=== PATIENT | female | born 1935 | race Caucasian/White ===

== ENCOUNTER → 2017-04-29 | Outpatient (CLI) | payer MEDICARE ==
[2017-04-29 19:06] LABS: Basophils # (A) 0.1 k/uL (0-0.2); Basophils % (A) 1 %; Eosinophils # (A) 0.5 k/uL (0-0.7); Eosinophils % (A) 4 %; HDW 2.15; HGB 13.5 gm/dL (11.4-16.0); Luc % (Auto) 3; Lymphocytes # (A) 2.9 k/uL (1.0-4.8); Lymphocytes % (A) 23 %; MCH 30.4 pg (25.0-35.0); MCHC 32.2 g/dL (31.0-37.0); MCV 94.4 fL (80.0-100.0); Mean Platelet Volume 7.5; Monocytes # (A) 0.8 k/uL (0-1.0); Monocytes % (A) 7 %; Neutrophils # (A) 7.8 k/uL (1.3-7.7); Neutrophils % (A) 62 %; RBC 4.45 m/uL (3.80-5.40); RDW 12.9 % (11.5-15.5); WBC 12.5 k/uL (3.8-10.6); WBC (Perox) 12.35
[2017-04-29 19:07] LABS: ALT 37 U/L (9-52); AST 34 U/L (14-36); Alkaline Phosphatase 74 U/L (38-126); Anion Gap 8 mmol/L; Blood Urea Nitrogen 24 mg/dL (7-17); Calcium 10.6 mg/dL (8.4-10.2); Carbon Dioxide 31 mmol/L (22-30); Chloride 98 mmol/L (98-107); Cholesterol 135 mg/dL (<200); Glucose 84 mg/dL (74-99); HDL Cholesterol 62 mg/dL (40-60); Non-African American GFR(MDRD) >60 (>60 ml/min/1.73 sqM); Potassium 4.7 mmol/L (3.5-5.1); Sodium 137 mmol/L (137-145); Total Bilirubin 0.6 mg/dL (0.2-1.3); Total Protein 6.9 g/dL (6.3-8.2)
[2017-04-29 19:45] LABS: Hemoglobin A1C 6.3 % (4.2-6.1)
== END ==
LOC: MMGSC 13:52
PROVIDERS: ATTEND Family Medicine
DX: E11.9 Type 2 diabetes mellitus without complications (principal); E78.5 Hyperlipidemia, unspecified; I10 Essential (primary) hypertension
CPT/HCPCS: 36415; 80053; 80061; 83036; 84439; 84443; 85025

== ENCOUNTER 2017-06-01 16:24 | Inpatient (IN) | payer MEDICARE ==
--- NOTE | 2017-06-01 16:46 | ED ---
General Adult HPI - General Chief complaint: Extremity Injury, Lower Stated complaint: fall/hip pain Time Seen by Provider: 06/01/17 16:45 Source: patient Mode of arrival: wheelchair Limitations: no limitations - History of Present Illness Initial comments: Kaylee is an 82-year-old female who presents to the emergency department via private vehicle for evaluation of right hip pain after a fall. reports that they were at the gas station she was walking around a corner when she lost her footing and fell onto her right side. He heard her scream immediately and ran to his sister. He was able to assist her back into the wild animal caretaker to the emergency department. He reports that since the fall she has not been willing to stand or bear weight on that leg. He denies any previous injuries or surgeries to that leg. When laying flat the patient reports she is comfortable however she has pain with movement of her right hip. - Related Data Home Medications Medication Instructions Recorded Confirmed Aspirin EC [Ecotrin Low Dose] 81 mg PO DAILY 06/01/17 06/01/17 Calcium Carbonate [Calcium] 600 mg PO BID 06/01/17 06/01/17 Losartan/Hydrochlorothiazide 1 tab PO DAILY 06/01/17 06/01/17 [Losartan-Hctz 100-25 mg Tab] Memantine HCl [Namenda] 10 mg PO BID 06/01/17 06/01/17 Metoprolol Succinate [Toprol XL] 50 mg PO DAILY 06/01/17 06/01/17 [place]-3 Fatty Acids/Fish Oil [Fish 1 cap PO BID 06/01/17 06/01/17 Oil 1,000 mg Softgel] Rivastigmine Tartrate [Exelon] 4.5 mg PO DAILY 06/01/17 06/01/17 Simvastatin [Zocor] 40 mg PO HS 06/01/17 06/01/17 prednisoLONE ACETATE 1% OPHTH 1 drops LEFT EYE MOFR 06/01/17 06/01/17 [Pred Forte 1%] Allergies Allergy/AdvReac Type Severity Reaction Status Date / Time No Known Allergies Allergy Verified 06/01/17 17:22 Review of Systems ROS Statement: Those systems with pertinent positive or pertinent negative responses have been documented in the HPI. ROS Other: All systems not noted in ROS Statement are negative. 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 Absent: respiratory distress Cardiovascular Exam: Present: normal rhythm, bradycardia GI/Abdominal exam: Present: soft. Absent: distended Right Hip exam: Present: tenderness. Absent: full ROM Upper Leg exam: Present: tenderness. Absent: full ROM Knee exam: Absent: tenderness Lower Leg exam: Absent: tenderness Ankle exam: Present: full ROM. Absent: tenderness Foot/Toe exam: Present: full ROM. Absent: tenderness Neurovascular tendon exam: Absent: pulse deficit, abnormal cap refill, sensory deficit, extremity cold to touch, pallor Back exam: Present: normal inspection Neurological exam: Present: alert Psychiatric exam: Present: normal affect Skin exam: Present: warm, dry, intact Course Vital Signs 06/01/17 06/01/17 16:26 17:47 Temperature 97.6 F Pulse Rate 50 L 50 L Respiratory 18 20 Rate Blood Pressure 119/56 155/70 O2 Sat by Pulse 95 98 Oximetry - Reevaluation(s) Reevaluation #1: Urologist called with critical finding of intertrochanteric fracture with some compression as well as a concern for AAA. I updated the patient and her on these findings. Patient and report no known history of abdominal aortic aneurysm. 06/01/17 17:23 Medical Decision Making - Medical Decision Making She was seen and evaluated, history was obtained from the patient and her , patient is pleasantly demented to provide history and identify painful stimuli She with a mechanical fall earlier in the day, has been unable to ambulate since that time, has required assistance in transitioning from wheelchair to bed. Concern for right hip pain. I will order an x-ray to evaluate for possible fracture Lower extremity is neurovascularly intact X-ray with concern for fracture as well as possible AAA, I will pursue further evaluation of this with a CT angiography Labs ordered in anticipation of operative repair CT reveals a aortic aneurysm of 5.6 cm in maximum diameter, patient is currently symptomatically from this this is likely chronic require outpatient follow-up Patient care was discussed with Dr. Rosa of the orthopedic team who accepts the admission and requests the patient be made nothing by mouth at midnight for likely operative intervention tomorrow morning Admission orders were placed - Lab Data Result diagrams: 06/01/17 17:50 06/01/17 17:50 Lab Results 06/01/17 06/01/17 06/01/17 Range/Units 17:50 17:50 17:50 WBC 18.4 H (3.8-10.6) k/uL RBC 4.27 (3.80-5.40) m/uL Hgb 12.9 (11.4-16.0) gm/dL Hct 40.7 (34.0-46.0) % MCV 95.3 (80.0-100.0) fL MCH 30.2 (25.0-35.0) pg MCHC 31.7 (31.0-37.0) g/dL RDW 12.6 (11.5-15.5) % Plt Count 277 (150-450) k/uL Neutrophils % 77 % Lymphocytes % 12 % Monocytes % 7 % Eosinophils % 2 % Basophils % 1 % Neutrophils # 14.1 H (1.3-7.7) k/uL Lymphocytes # 2.1 (1.0-4.8) k/uL Monocytes # 1.2 H (0-1.0) k/uL Eosinophils # 0.4 (0-0.7) k/uL Basophils # 0.1 (0-0.2) k/uL PT (9.0-12.0) sec INR (<1.2) APTT (22.0-30.0) sec Sodium 135 L (137-145) mmol/L Potassium 5.5 H (3.5-5.1) mmol/L Chloride 101 (98-107) mmol/L Carbon Dioxide 25 (22-30) mmol/L Anion Gap 9 mmol/L BUN 38 H (7-17) mg/dL Creatinine 0.96 (0.52-1.04) mg/dL Est GFR (MDRD) Af Amer >60 (>60 ml/min/1.73 sqM) Est GFR (MDRD) Non-Af 56 (>60 ml/min/1.73 sqM) Glucose 111 H (74-99) mg/dL Calcium 9.9 (8.4-10.2) mg/dL Total Bilirubin 0.5 (0.2-1.3) mg/dL AST 36 (14-36) U/L ALT 28 (9-52) U/L Alkaline Phosphatase 57 (38-126) U/L Total Protein 6.8 (6.3-8.2) g/dL Albumin 3.7 (3.5-5.0) g/dL Blood Type A Positive Blood Type Recheck CABO Indicated Antibody Screen NEGATIVE Spec Expiration Date 06/04/2017 - 234906/01/17 Range/Units 18:50 WBC (3.8-10.6) k/uL RBC (3.80-5.40) m/uL Hgb (11.4-16.0) gm/dL Hct (34.0-46.0) % MCV (80.0-100.0) fL MCH (25.0-35.0) pg MCHC (31.0-37.0) g/dL RDW (11.5-15.5) % Plt Count (150-450) k/uL Neutrophils % % Lymphocytes % % Monocytes % % Eosinophils % % Basophils % % Neutrophils # (1.3-7.7) k/uL Lymphocytes # (1.0-4.8) k/uL Monocytes # (0-1.0) k/uL Eosinophils # (0-0.7) k/uL Basophils # (0-0.2) k/uL PT 11.3 (9.0-12.0) sec INR 1.1 (<1.2) APTT 20.6 L (22.0-30.0) sec Sodium (137-145) mmol/L Potassium (3.5-5.1) mmol/L Chloride (98-107) mmol/L Carbon Dioxide (22-30) mmol/L Anion Gap mmol/L BUN (7-17) mg/dL Creatinine (0.52-1.04) mg/dL Est GFR (MDRD) Af Amer (>60 ml/min/1.73 sqM) Est GFR (MDRD) Non-Af (>60 ml/min/1.73 sqM) Glucose (74-99) mg/dL Calcium (8.4-10.2) mg/dL Total Bilirubin (0.2-1.3) mg/dL AST (14-36) U/L ALT (9-52) U/L Alkaline Phosphatase (38-126) U/L Total Protein (6.3-8.2) g/dL Albumin (3.5-5.0) g/dL Blood Type Blood Type Recheck Antibody Screen Spec Expiration Date Disposition Clinical Impression: Fracture of hip Disposition: ADMITTED IP TO THIS HOSP Condition: Good Referrals: Yamilet Herr MD [Primary Care Provider] - 1-2 days Time of Disposition: 20:02 Decision Time: 20:02
--- NOTE | 2017-06-01 17:14 | XR ---
EXAMINATION TYPE: XR Hip RT and AP Pelvis DATE OF EXAM: 06/01/2017 COMPARISON: NONE HISTORY: , And pain TECHNIQUE: A single AP view of the pelvis is obtained. Two views of the right hip are obtained. There is an intertrochanteric fracture of the right hip with some impaction. No dislocation. Bone min eralization is reduced. Large rounded area of calcification present within the abdomen. Impression: Right hip fracture. Suspect abdominal aortic aneurysm.
[2017-06-01] MEDS ORDERED: RX INFO: IV CONTRAST WAS GIVEN 1 EACH MISC MISCELLANE PRN (17:21)
[2017-06-01 18:01] LABS: Basophils # (A) 0.1 k/uL (0-0.2); Basophils % (A) 1 %; CH 30.5; CHCM 32.2; Eosinophils # (A) 0.4 k/uL (0-0.7); Eosinophils % (A) 2 %; HCT 40.7 % (34.0-46.0); HDW 2.11; HGB 12.9 gm/dL (11.4-16.0); Luc # (Auto) 0.45; Luc % (Auto) 3; Lymphocytes # (A) 2.1 k/uL (1.0-4.8); Lymphocytes % (A) 12 %; MCH 30.2 pg (25.0-35.0); MCHC 31.7 g/dL (31.0-37.0); MCV 95.3 fL (80.0-100.0); Mean Platelet Volume 8.1; Monocytes # (A) 1.2 k/uL (0-1.0); Monocytes % (A) 7 %; Neutrophils # (A) 14.1 k/uL (1.3-7.7); Neutrophils % (A) 77 %; RBC 4.27 m/uL (3.80-5.40); RDW 12.6 % (11.5-15.5); WBC 18.4 k/uL (3.8-10.6); WBC (Perox) 18.21
[2017-06-01 18:12] LABS: ALT 28 U/L (9-52); AST 36 U/L (14-36); Alkaline Phosphatase 57 U/L (38-126); Anion Gap 9 mmol/L; Blood Urea Nitrogen 38 mg/dL (7-17); Calcium 9.9 mg/dL (8.4-10.2); Carbon Dioxide 25 mmol/L (22-30); Chloride 101 mmol/L (98-107); Glucose 111 mg/dL (74-99); Non-African American GFR(MDRD) 56 (>60 ml/min/1.73 sqM); Potassium 5.5 mmol/L (3.5-5.1); Sodium 135 mmol/L (137-145); Total Bilirubin 0.5 mg/dL (0.2-1.3); Total Protein 6.8 g/dL (6.3-8.2)
[2017-06-01 19:14] LABS: INR 1.1 (<1.2); Prothrombin Time 11.3 sec (9.0-12.0)
[2017-06-01 19:34] LABS: Partial Thromboplastin Time 20.6 sec (22.0-30.0)
--- NOTE | 2017-06-01 19:41 | CT ---
EXAMINATION TYPE: CT angio thoracic/abd aorta DATE OF EXAM: 06/01/2017 COMPARISON: Plain film same date HISTORY: Abnormal xray. CT DLP: 1228.40 mGycm. Automated Exposure Control for Dose Reduction was Utilized. CONTRAST: CT scan of the thorax, abdomen and pelvis is performed without and with IV Contrast, patient injected with 80 mL of Visipaque 320. FINDINGS: Three-dimensional reconstructions performed on an alternate workstation Emphysematous changes are present within the lungs. There is no pleural or pericardial effusion. Sandra cardial calcification, coronary artery calcifications are noted. There is a small hiatal hernia. Thoracic aorta is nonaneurysmal. The descending aorta shows a luminal plaque. The innominate artery, left and right common carotid, left and right subclavian arteries are patent. Left and right common c arotid arteries are patent. The superior mesenteric artery, celiac axis, left and right renal arteries are patent. Inferior mesen teric artery is not seen. There is a pararenal abdominal aortic aneurysm measuring 5.6 cm in size. Th e neck is less than 1 cm to a caliber of approximately 4 cm. There is some calcification present with in the lumen. The abdominal aorta measures approximately 3 cm at the level of the origin of the renal arteries. Common iliac arteries show extensive calcification, there may be a stenosis of the origin of the left common iliac artery greater than right. Internal and external iliac arteries are patent. Common femoral arteries are patent as are proximal superficial and deep femoral arteries. Extensive diverticular change noted in the sigmoid colon. Sizable left renal cyst is present at the u pper pole. Smaller cortical cysts are present bilaterally. 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 Comminuted intertrochanteric fracture is noted in the right hip. There is no dislocation. Degenerativ e disc changes in the visualized spine. IMPRESSION: Pararenal abdominal aortic aneurysm, peripheral vascular occlusive disease as described. Intertrochanteric proximal right femoral fracture. Emphysema. Coronary artery disease. Diverticulosis . Additional findings above.
[2017-06-01] MEDS ORDERED: MORPHINE SULFATE 2 MG/ML SYRINGE IV PRN (19:57)
[2017-06-01] MEDS ORDERED: NALOXONE 0.4 MG/ML 1 ML VIAL IV PRN (19:57)
[2017-06-01] MEDS ORDERED: ONDANSETRON 4 MG/2 ML VIAL IVP PRN (19:57)
[2017-06-01] MEDS ORDERED: METOPROLOL TARTRATE 50 MG TAB PO STA (20:32)
[2017-06-01] MEDS: SODIUM CHLORIDE 0.9% 1,000 ML IV SCH (22:00)
[2017-06-01] MEDS: MEMANTINE 10 MG TAB PO SCH (22:55)
[2017-06-01 23:16] VITALS: BMI 24.8
[2017-06-02 07:26] LABS: Anion Gap 8 mmol/L; Blood Urea Nitrogen 33 mg/dL (7-17); Calcium 9.2 mg/dL (8.4-10.2); Carbon Dioxide 24 mmol/L (22-30); Chloride 103 mmol/L (98-107); Glucose 123 mg/dL (74-99); Magnesium 1.7 mg/dL (1.6-2.3); Non-African American GFR(MDRD) >60 (>60 ml/min/1.73 sqM); Potassium 4.4 mmol/L (3.5-5.1); Sodium 135 mmol/L (137-145)
[2017-06-02 08:08] LABS: Basophils # (A) 0.1 k/uL (0-0.2); Basophils % (A) 0 %; CH 30.4; CHCM 31.7; Eosinophils # (A) 0.3 k/uL (0-0.7); Eosinophils % (A) 2 %; HCT 38.6 % (34.0-46.0); HDW 2.04; Luc # (Auto) 0.51; Luc % (Auto) 4; Lymphocytes # (A) 2.2 k/uL (1.0-4.8); Lymphocytes % (A) 17 %; MCH 29.9 pg (25.0-35.0); MCHC 31.1 g/dL (31.0-37.0); MCV 96.3 fL (80.0-100.0); Mean Platelet Volume 6.6; Monocytes # (A) 0.9 k/uL (0-1.0); Monocytes % (A) 8 %; Neutrophils # (A) 8.4 k/uL (1.3-7.7); Neutrophils % (A) 68 %; RBC 4.01 m/uL (3.80-5.40); RDW 12.9 % (11.5-15.5); WBC 12.3 k/uL (3.8-10.6); WBC (Perox) 12.11
[2017-06-02] MEDS: METOPROLOL SUCCINATE (ER) 50 MG TAB.ER.24H PO SCH (08:48)
[2017-06-02] MEDS: DONEPEZIL 5 MG TAB PO SCH (08:48)
[2017-06-02] MEDS: MEMANTINE 10 MG TAB PO SCH ×2 (08:48→20:15)
[2017-06-02] MEDS: PANTOPRAZOLE 40 MG/10 ML VIAL IV SCH (09:10)
[2017-06-02] MEDS: SODIUM CHLORIDE 0.9% 1,000 ML IV SCH (09:13)
--- NOTE | 2017-06-02 09:21 | P.HPOR ---
<Janki Munroe L - Last Filed: 06/02/17 09:15> History of Present Illness H&P Date: 06/02/17 This is an 82-year-old female who is admitted for right hip fracture. Patient states she fell around 2:30 in the afternoon yesterday developed pain to the right hip. Patient was evaluated in the emergency room and admitted for orthopedic evaluation. Patient denies any pain to the left lower extremity, bilateral upper extremities, back or neck. Review of Systems See HPI. Past Medical History Past Medical History: Hypertension Additional Past Medical History / Comment(s): alzhemiers History of Any Multi-Drug Resistant Organisms: None Reported Past Surgical History: No Surgical Hx Reported Past Anesthesia/Blood Transfusion Reactions: No Reported Reaction Past Psychological History: No Psychological Hx Reported Smoking Status: Never smoker Past Alcohol Use History: Occasional Past Drug Use History: None Reported Medications and Allergies Home Medications Medication Instructions Recorded Confirmed Type Aspirin EC [Ecotrin Low Dose] 81 mg PO DAILY 06/01/17 06/01/17 History Calcium Carbonate [Calcium] 600 mg PO BID 06/01/17 06/01/17 History Losartan/Hydrochlorothiazide 1 tab PO DAILY 06/01/17 06/01/17 History [Losartan-Hctz 100-25 mg Tab] Memantine HCl [Namenda] 10 mg PO BID 06/01/17 06/01/17 History Metoprolol Succinate [Toprol XL] 50 mg PO DAILY 06/01/17 06/01/17 History [place]-3 Fatty Acids/Fish Oil [Fish 1 cap PO BID 06/01/17 06/01/17 History Oil 1,000 mg Softgel] Rivastigmine Tartrate [Exelon] 4.5 mg PO DAILY 06/01/17 06/01/17 History Simvastatin [Zocor] 40 mg PO HS 06/01/17 06/01/17 History prednisoLONE ACETATE 1% OPHTH 1 drops LEFT EYE MOFR 06/01/17 06/01/17 History [Pred Forte 1%] Allergies Allergy/AdvReac Type Severity Reaction Status Date / Time No Known Allergies Allergy Verified 06/01/17 17:22 Physical Examination On exam patient is in no acute distress and is answering questions appropriately. There is tenderness over the right hip. Calf is soft and nontender. Dorsalis pedis pulses 2+. There is no tenderness of the left lower extremity or bilateral upper extremities. Neurovascular status intact to bilateral upper and lower extremities. Results X-rays of the right hip were reviewed showing intertrochanteric fracture of the right femur. - Labs Labs: Abnormal Lab Results - Last 24 Hours (Table) 06/01/17 06/01/17 06/01/17 Range/Units 17:50 17:50 18:50 WBC 18.4 H (3.8-10.6) k/uL Neutrophils # 14.1 H (1.3-7.7) k/uL Monocytes # 1.2 H (0-1.0) k/uL APTT 20.6 L (22.0-30.0) sec Sodium 135 L (137-145) mmol/L Potassium 5.5 H (3.5-5.1) mmol/L BUN 38 H (7-17) mg/dL Glucose 111 H (74-99) mg/dL 06/02/17 06/02/17 Range/Units 06:40 06:40 WBC 12.3 H (3.8-10.6) k/uL Neutrophils # 8.4 H (1.3-7.7) k/uL Monocytes # (0-1.0) k/uL APTT (22.0-30.0) sec Sodium 135 L (137-145) mmol/L Potassium (3.5-5.1) mmol/L BUN 33 H (7-17) mg/dL Glucose 123 H (74-99) mg/dL H & H 06/01/17 06/02/17 Range/Units 17:50 06:40 Hgb 12.9 12.0 (11.4-16.0) gm/dL Hct 40.7 38.6 (34.0-46.0) % Coagulation 06/01/17 Range/Units 18:50 INR 1.1 (<1.2) Result Diagrams: 06/02/17 06:40 06/02/17 06:40 Assessment and Plan (1) Intertrochanteric fracture of right hip Current Visit: Yes Status: Acute Code(s): S72.141A - DISPLACED INTERTROCHANTERIC FRACTURE OF RIGHT FEMUR, INIT SNOMED Code(s): 815435212 Plan: #1. Patient is to be NPO. #2. Medical clearance is pending. #3. Patient is scheduled for a closed reduction intramedullary hip screw of the right hip at 11:[address] Georgi Rosa if cleared medically. <Kar Mcdonnell - Last Filed: 06/02/17 11:36> Physical Examination Osteopathic Statement: *. No significant issues noted on an osteopathic structural exam other than those noted in the History and Physical/Consult. Results - Labs Labs: Abnormal Lab Results - Last 24 Hours (Table) 06/01/17 06/01/17 06/01/17 Range/Units 17:50 17:50 18:50 WBC 18.4 H (3.8-10.6) k/uL Neutrophils # 14.1 H (1.3-7.7) k/uL Monocytes # 1.2 H (0-1.0) k/uL APTT 20.6 L (22.0-30.0) sec Sodium 135 L (137-145) mmol/L Potassium 5.5 H (3.5-5.1) mmol/L BUN 38 H (7-17) mg/dL Glucose 111 H (74-99) mg/dL 06/02/17 06/02/17 Range/Units 06:40 06:40 WBC 12.3 H (3.8-10.6) k/uL Neutrophils # 8.4 H (1.3-7.7) k/uL Monocytes # (0-1.0) k/uL APTT (22.0-30.0) sec Sodium 135 L (137-145) mmol/L Potassium (3.5-5.1) mmol/L BUN 33 H (7-17) mg/dL Glucose 123 H (74-99) mg/dL H & H 06/01/17 06/02/17 Range/Units 17:50 06:40 Hgb 12.9 12.0 (11.4-16.0) gm/dL Hct 40.7 38.6 (34.0-46.0) % Coagulation 06/01/17 Range/Units 18:50 INR 1.1 (<1.2) Result Diagrams: 06/02/17 06:40 06/02/17 06:40 Assessment and Plan Assessment: I saw the patient myself evaluated the x-rays and discuss case with Dr. Rosa as well as with Janki ramesh to the physician preschool assistant teacher. I did also discuss case with the medicine doctor who cleared the patient as well. Patient has an intertrochanteric right hip fracture and I agree with the assessment and plan for intramedullary hip screw fixation with surgery. I discussed the risks , occasions alternatives and benefits with the family at bedside answered their questions best my ability and the like to proceed with surgical intervention as soon as possible
--- NOTE | 2017-06-02 10:43 | P.CONS ---
History of Present Illness - Reason for Consult Consult date: 06/02/17 medical clearance - Chief Complaint intertrochanteric fracture - History of Present Illness this 82-year-old female was admitted after a fall. describes it patient just tripped on a unevenness in the cement and fell down. Patient did not hit her head and the lose consciousness denies any chest pain or palpitations prior to falling down.denies any recent illness denies any chest pains recently. Review of Systems Constitutional: Denies chills, Denies fever Eyes: denies blurred vision, denies pain Ears, nose, mouth and throat: Denies headache, Denies sore throat Cardiovascular: Denies chest pain, Denies shortness of breath Respiratory: Denies cough Gastrointestinal: Denies abdominal pain, Denies diarrhea, Denies nausea, Denies vomiting Genitourinary: Denies dysuria, Denies hematuria Musculoskeletal: Denies myalgias Integumentary: Denies pruritus, Denies rash Neurological: Denies numbness, Denies weakness Psychiatric: Denies anxiety, Denies depression Endocrine: Denies fatigue, Denies weight change Past Medical History Past Medical History: COPD, Dementia, Hyperlipidemia, Hypertension Additional Past Medical History / Comment(s): alzhemiers History of Any Multi-Drug Resistant Organisms: None Reported Past Surgical History: No Surgical Hx Reported, Cholecystectomy Additional Past Surgical History / Comment(s): eye surgery Past Anesthesia/Blood Transfusion Reactions: No Reported Reaction Past Psychological History: No Psychological Hx Reported Smoking Status: Former smoker Past Alcohol Use History: Occasional Past Drug Use History: None Reported Additional History: family history no of coronary artery disease or stroke Medications and Allergies Home Medications Medication Instructions Recorded Confirmed Type Aspirin EC [Ecotrin Low Dose] 81 mg PO DAILY 06/01/17 06/01/17 History Calcium Carbonate [Calcium] 600 mg PO BID 06/01/17 06/01/17 History Losartan/Hydrochlorothiazide 1 tab PO DAILY 06/01/17 06/01/17 History [Losartan-Hctz 100-25 mg Tab] Memantine HCl [Namenda] 10 mg PO BID 06/01/17 06/01/17 History Metoprolol Succinate [Toprol XL] 50 mg PO DAILY 06/01/17 06/01/17 History [place]-3 Fatty Acids/Fish Oil [Fish 1 cap PO BID 06/01/17 06/01/17 History Oil 1,000 mg Softgel] Rivastigmine Tartrate [Exelon] 4.5 mg PO DAILY 06/01/17 06/01/17 History Simvastatin [Zocor] 40 mg PO HS 06/01/17 06/01/17 History prednisoLONE ACETATE 1% OPHTH 1 drops LEFT EYE MOFR 06/01/17 06/01/17 History [Pred Forte 1%] Allergies Allergy/AdvReac Type Severity Reaction Status Date / Time No Known Allergies Allergy Verified 06/01/17 17:22 Physical Exam Vitals: Vital Signs Temp Pulse Pulse Resp BP BP Pulse Ox 06/02/17 01:35 97.7 F 57 L 16 161/68 95 06/01/17 23:21 16 06/01/17 22:15 98.7 F 72 16 166/72 94 L 06/01/17 20:13 51 L 18 193/79 92 L 06/01/17 17:47 50 L 20 155/70 98 06/01/17 16:26 97.6 F 50 L 18 119/56 95 Intake and Output 06/01/17 06/02/17 06/02/17 22:59 06:59 14:59 Intake Total 475 Output Total 810 Balance -335 Intake: Intake, IV Titration 375 Amount Sodium Chloride 0.9% 1, 375 000 ml @ 75 mls/hr IV . [id number] [facility] Rx#:[id number] Oral 100 Output: Urine 810 Uretheral (Boss) 500 Other: Voiding Method Indwelling Catheter Weight 61.689 kg - Constitutional General appearance: no acute distress - EENT Eyes: EOMI, PERRLA - Neck Neck: no lymphadenopathy - Respiratory Respiratory: bilateral: CTA, negative: rhonchi, wheezing - Cardiovascular Rhythm: regular Heart sounds: normal: S1, S2 - Gastrointestinal General gastrointestinal: no organomegaly, soft, no tenderness - Psychiatric Psychiatric: A&O x's 3, appropriate affect Results CBC & Chem 7: 06/02/17 06:40 06/02/17 06:40 Labs: Abnormal Lab Results - Last 24 Hours (Table) 06/01/17 06/01/17 06/01/17 Range/Units 17:50 17:50 18:50 WBC 18.4 H (3.8-10.6) k/uL Neutrophils # 14.1 H (1.3-7.7) k/uL Monocytes # 1.2 H (0-1.0) k/uL APTT 20.6 L (22.0-30.0) sec Sodium 135 L (137-145) mmol/L Potassium 5.5 H (3.5-5.1) mmol/L BUN 38 H (7-17) mg/dL Glucose 111 H (74-99) mg/dL 06/02/17 06/02/17 Range/Units 06:40 06:40 WBC 12.3 H (3.8-10.6) k/uL Neutrophils # 8.4 H (1.3-7.7) k/uL Monocytes # (0-1.0) k/uL APTT (22.0-30.0) sec Sodium 135 L (137-145) mmol/L Potassium (3.5-5.1) mmol/L BUN 33 H (7-17) mg/dL Glucose 123 H (74-99) mg/dL Assessment and Plan (1) Intertrochanteric fracture of right hip Narrative/Plan: I did evaluate patient EKG shows normal sinus rhythm CT from yesterday did show emphysematous changes. I did discuss with the family and patient is at moderate risk for surgery which they are accepting. I doRecommended patient if she is going under general anesthesia and placed on BiPAP postsurgically postextubation. Im being told by the orthopedic surgeon this patient would be most likely spinal. Which we will decreased her risk for surgery. Current Visit: Yes Status: Acute Code(s): S72.141A - DISPLACED INTERTROCHANTERIC FRACTURE OF RIGHT FEMUR, INIT SNOMED Code(s): 990999802 (2) Hypertension Narrative/Plan: currently controlled continue Toprol-XL Current Visit: Yes Status: Acute Code(s): I10 - ESSENTIAL (PRIMARY) HYPERTENSION SNOMED Code(s): 51970649 (3) Dementia Narrative/Plan: on Aricept Current Visit: Yes Status: Acute Code(s): F03.90 - UNSPECIFIED DEMENTIA WITHOUT BEHAVIORAL DISTURBANCE SNOMED Code(s): 24448835 (4) Emphysema lung Narrative/Plan: currently stable we'll order DuoNeb when necessary Would recommend placing on BiPAP post surgery. Current Visit: Yes Status: Acute Code(s): J43.9 - EMPHYSEMA, UNSPECIFIED SNOMED Code(s): 89955979 (5) Hyperlipidemia Narrative/Plan: diet controlled Current Visit: Yes Status: Acute Code(s): E78.5 - HYPERLIPIDEMIA, UNSPECIFIED SNOMED Code(s): 14334971
[2017-06-02] MEDS ORDERED: IV FLUID CONTINUATION 1,000 ML IV ONE (10:56)
[2017-06-02] MEDS ORDERED: ONDANSETRON 4 MG/2 ML VIAL IVP ONE (11:10)
[2017-06-02] MEDS ORDERED: KETAMINE 10 MG/ML 20 ML VIAL ONE (11:29)
[2017-06-02] MEDS ORDERED: MIDAZOLAM 2 MG/2 ML VIAL ONE (11:29)
[2017-06-02] MEDS ORDERED: PROPOFOL 10 MG/ML 20 ML VIAL IV ONE (11:29)
[2017-06-02] MEDS ORDERED: SODIUM CHLORIDE 0.9% 50 ML with ceFAZolin 2,000 MG IV ONE ×2 (11:42)
[2017-06-02] MEDS ORDERED: ceFAZolin 1,000 MG in SODIUM CHLORIDE 0.9% 1,000 ML IRRIGATION ONE (12:13)
[2017-06-02] MEDS ORDERED: MAGNESIUM HYDROXIDE 2,400 MG/10 ML CUP PO PRN (13:00)
[2017-06-02] MEDS ORDERED: NALOXONE 0.4 MG/ML 1 ML VIAL IV PRN (13:00)
[2017-06-02] MEDS ORDERED: HYDROmorphone 0.5 MG/0.5 ML SYRINGE IVP PRN (13:00)
--- NOTE | 2017-06-02 13:08 | P.OP ---
Date of Procedure: 06/02/17 Preoperative Diagnosis: Right hip intertrochanteric femur fracture, displaced, acute status post fall Postoperative Diagnosis: Same Anesthesia: spinal Pathology: other (Proximal femur bone reamings to pathology) Condition: stable Disposition: PACU Description of Procedure: Preoperative diagnosis: Intertrochanteric femoral hip fracture, acute comminuted status post fall Postoperative diagnosis: Same Procedure: intertrochanteric hip screw placement Use of fluoroscopic guidance Closed reduction Surgeon: Dr. Sathya Kessler.: Isrrael Murrieta who is present that the entire the case persistence during positioning dissection exposure placement of hardware and closure Anesthesia: Spinal per Dr. David Estimated blood loss: Approximately 100 mL Components implanted: [employer] InterTAN IM hip screw 125 by 11 mm with 90 m lag screw Disposition: To recovery room in good stable condition Operative indications The patient sustained a injury and suffered a hip fracture at the inter- trochanteric area of her femur which was displaced and angulated. She had an acute injury and a new fracture. She is found have the intertrochanteric fracture which was comminuted and angulated. We were involved in the case in regard to his hip fracture. She was completely in able to move in her bed or move her hip due to her injury. After evaluation it was determined that they would be a candidate for hip internal fixation with intramedullary hip screw via surgical intervention. This would give them the best chance of mobilization and ambulation. We discussed the range of treatment options from conservative to surgical. They elected proceed with surgical intervention. We answered their questions to the best of our ability healing which they can understand. They signed an informed consent. Operative summary After obtaining informed consent evaluation by anesthesia, preoperative evaluation and clearance for medical service, the patient was identified and prepped Boss area and the surgical site was marked. There brought to the operating room where the given appropriate anesthesia by the anesthesia department in standard fashion without any complications. Once the anesthesia was established we were able to position the patient. The patient was placed on a fracture table with a well-padded perineal post. The operative side was placed in a foot ho stirrup which was well-padded well molded and placed in gentle in-line traction. The nonoperative leg was placed in a padded stirrup. C-arm was brought in and we performed a closed reduction technique at the hip. We are able to get good alignment good position of the intertrochanteric fracture with gentle reduction techniques and traction utilizing the fracture table. Once patient was well positioned lower extremity was prepped and draped in normal standard sterile fashion. An appropriate keystone protocol and timeout was completed and were able to proceed with surgery. He started point just proximal to the greater trochanter was established and a median incision approximately 2 inches in length approximately to the greater trochanter. I dissected down through the fascia and I was able to expose the tip of the greater trochanter. A sharp starting hole was established at the tip of the greater trochanter near the junction of the anterior and middle third. Positioning was confirmed with C-arm guidance. I was able to start the awl into the bone and then use a guidepin at the starting point establish down to the level of the lesser trochanter at the intramedullary space. I then used a starting reamer for the greater trochanter placed over the guidepin and reamed down appropriately under C-arm guidance. I was unable to place a guidepin into the intramedullary aspect of the femur and then reamed appropriately to the appropriate length. The positioning was confirmed on C-arm guidance. With the femur appropriately reamed I then chose the appropriate size intramedullary brendan which was connected to the appropriate jig. The jig was checked for alignment. The area was copiously irrigated and suctioned dry and we're able place the brendan at intramedullary space through the starting hole appropriately. It was seated down for appropriate position to align the leg pain into the femoral neck and head. The second femoral neck and head screw was also placed and was able get good compression across the fracture site. A second incision was established at the site for the placement of the lag screw area and the guide was established at the lateral aspect of the femur and a guidepin was drilled into the femoral neck and head and near center center position. With this appropriate alignment and position where a reamer over the guidepin making sure not to penetrate the articular surface. The position was confirmed on C-arm guidance in AP and lateral positions. With this established we were able to place the appropriate size lag screw after measuring. Lag screw was placed into the femoral neck and head good alignment good position with excellent bony purchase. It was appropriately aligned and we placed a locking screw through the brendan appropriately and checked that the position was established. With the area in good position able place a distal locking screw. We utilized the triple guide sleeve a separate incision was made at the skin. The guide sleeve was placed in the lateral aspect of the femur and the distal locking screw hole was established through the femur and distal locking hole of the intramedullary brendan. It was measured appropriately and a distal locking screw was placed in good alignment and good position with excellent bony purchase. The position was checked to make sure it was through the appropriate hole in the intramedullary brendan. With this established we're able to remove the jig completely from the brendan and final images were taken which showed excellent alignment and position of the hardware and the fracture. With the brendan in place and the fracture stable, although the incision sites were copiously irrigated and suctioned dry. Good hemostasis was maintained. Deep fascial layers were closed with #1 Vicryl. Subcu tissue was closed with 2-0 Vicryl. Subcuticular tissues closed with 3-0 Vicryl. Was are cleaned and dried with dressed with Mastisol and Steri-Strips Telfa for a force and tape. Drapes were broken down, the hip was held in stable position with the post being removed safely once the positioning was stabilized. The patient was then transferred back to their hospital bed being careful to maintain the hip and C- spine alignment and airway. Once stable to patient was transferred back to the postanesthesia care unit to be readmitted for pain control and DVT prophylaxis medical management and monitoring and mobilization we will continue follow patient closely throughout their postoperative course.
--- NOTE | 2017-06-02 13:46 | FL ---
EXAMINATION TYPE: FL guidance operating room, XR Hip Complete RT DATE OF EXAM: 06/02/2017 CLINICAL HISTORY: Right hip pain TECHNIQUE: Fluoroscopy. COMPARISON: None. FINDINGS/IMPRESSION: Fluoroscopic guidance was provided during procedure performed by Dr. Rosa. A total of 1 minute and 55 seconds of fluoroscopic time was utilized during the procedure and 2 spot images was acquired.
[2017-06-02 14:51] LABS: Basophils # (A) 0.1 k/uL (0-0.2); Basophils % (A) 0 %; CH 31.7; CHCM 31.8; Eosinophils # (A) 0.4 k/uL (0-0.7); Eosinophils % (A) 2 %; HCT 38.3 % (34.0-46.0); HDW 2.07; HGB 11.7 gm/dL (11.4-16.0); Luc # (Auto) 0.44; Luc % (Auto) 3; Lymphocytes # (A) 2.3 k/uL (1.0-4.8); Lymphocytes % (A) 16 %; MCH 30.7 pg (25.0-35.0); MCHC 30.6 g/dL (31.0-37.0); MCV 100.2 fL (80.0-100.0); Macrocytosis Slight; Mean Platelet Volume 7.1; Monocytes # (A) 1.1 k/uL (0-1.0); Monocytes % (A) 7 %; Neutrophils # (A) 10.4 k/uL (1.3-7.7); Neutrophils % (A) 71 %; RBC 3.82 m/uL (3.80-5.40); WBC 14.6 k/uL (3.8-10.6); WBC (Perox) 15.04
[2017-06-02] MEDS: ceFAZolin 2 GM in SODIUM CHLORIDE 0.9% 100 ML IVPB SCH (17:18)
[2017-06-02] MEDS: ATORVASTATIN 20 MG TAB PO SCH (20:21)
[2017-06-02] MEDS: SENNOSIDES-DOCUSATE SODIUM 1 EACH TAB PO SCH (20:21)
[2017-06-02] MEDS: CALCIUM CARBONATE 500 MG CHEWABLE PO SCH (20:21)
[2017-06-02] MEDS ORDERED: NON-FORMULARY DRUG (Omega-3 Fatty Acids/Fish Oil [Fish Oil 1,000 Mg Softgel] 1 CAP) PO SCH (21:00)
[2017-06-03] MEDS: ceFAZolin 2 GM in SODIUM CHLORIDE 0.9% 100 ML IVPB SCH (00:15)
[2017-06-03] MEDS: SODIUM CHLORIDE 0.9% 1,000 ML IV SCH ×3 (02:43→23:26)
[2017-06-03] MEDS: ASPIRIN 81 MG PO SCH (09:05)
[2017-06-03] MEDS: CALCIUM CARBONATE 500 MG CHEWABLE PO SCH ×2 (09:05→21:08)
[2017-06-03] MEDS: DONEPEZIL 5 MG TAB PO SCH (09:05)
[2017-06-03] MEDS: ENOXAPARIN 40 MG/0.4 ML SYRINGE SQ SCH (09:05)
[2017-06-03] MEDS: LOSARTAN-HCTZ 50-12.5 MG 1 EACH TAB PO SCH (09:06)
[2017-06-03] MEDS: PANTOPRAZOLE 40 MG/10 ML VIAL IV SCH (09:06)
[2017-06-03] MEDS: METOPROLOL SUCCINATE (ER) 50 MG TAB.ER.24H PO SCH (09:06)
[2017-06-03] MEDS: MEMANTINE 10 MG TAB PO SCH ×2 (09:06→21:08)
--- NOTE | 2017-06-03 09:32 | P.PN ---
Progress Note - Text Progress Note Date: 06/03/17 Postoperative day #1 Patient is seen and examined today at bedside. The patient has some pain around the surgical site as expected. Pain is being controlled with medication. She has been able to sit up and is more comfortable around her hip today since her surgery. She denies any nausea or vomiting. Her Boss still intact Physical Exam Afebrile with stable vital signs Abdomen is soft nontender. Chest has good excursion deep and space expiration The incision site is clean dry and intact at her right thigh. No erythema there is no purulence. Her thigh and calf are soft and nontender. There is no active drainage. Extremities have not had neurologic change from prior to surgery. She has sustained dorsal flexion plantar flexion and extensor hallucis longus Calves and thighs were soft nontender without evidence of DVT. Assessment/Plan Postoperative day #1 status post intramedullary brendan fixation with IM hip screw for her intertrochanteric right hip fracture Patient is progressing as expected from the surgery. She should remain toe- touch weightbearing on the right lower extremity as the fracture heals. We will continue to increase the patient's mobilization with therapy. We will continue pain control with oral or IV medications. She will likely need placement with jail post hospitalization when she is stabilized with medicine service. She could potentially be discharged to jail tomorrow. We'll continue to follow patient closely.
--- NOTE | 2017-06-03 15:11 | P.PN ---
Subjective Progress Note Date: 06/03/17 Principal diagnosis: Intertrochanteric fracture 82 year old female that was admitted after a fall found to have ventricular trochanteric fracture. No muscle consciousness or chest pains or palpitations. Patient had surgical repair performed yesterday. Today patient will complain of pain she did have a bowel movement today appetite is good no nausea no vomiting. No fever no chills. Objective - Vital Signs Vital signs: Vital Signs Temp 97.1 F L 06/03/17 08:56 Pulse 84 06/03/17 08:56 Resp 18 06/03/17 08:56 BP 160/72 06/03/17 08:56 Pulse Ox 92 L 06/03/17 08:56 Intake & Output 06/02/17 06/03/17 06/03/17 18:59 06:59 18:59 Intake Total 1101 225 500 Output Total 925 800 300 Balance 176 -575 200 Weight 61.689 kg Intake: IV 1101 225 200 Sodium Chloride 0.9% 1, 300 225 200 000 ml @ 75 mls/hr IV . [id number] [facility] Rx#:[id number] Oral 300 Output: Urine 875 800 300 Uretheral (Boss) 400 300 Estimated Blood Loss 50 Other: Voiding Method Indwelling Catheter Indwelling Catheter Indwelling Catheter - Exam gen:alert and oriented lungs:clear to auscultation heart:s1s2 abdomen:soft and depressible,non tender ext:no edema - Labs CBC & Chem 7: 06/02/17 14:17 06/02/17 06:40 Assessment and Plan (1) Intertrochanteric fracture of right hip Narrative/Plan: Status post surgery yesterday performed by orthopedic surgery Clinically doing well pain controlled Current Visit: Yes Status: Acute Code(s): S72.141A - DISPLACED INTERTROCHANTERIC FRACTURE OF RIGHT FEMUR, INIT SNOMED Code(s): 477695965 (2) Hypertension Narrative/Plan: currently controlled continue Toprol-XL Current Visit: Yes Status: Acute Code(s): I10 - ESSENTIAL (PRIMARY) HYPERTENSION SNOMED Code(s): 41601271 (3) Dementia Narrative/Plan: on Aricept and Namenda Current Visit: Yes Status: Acute Code(s): F03.90 - UNSPECIFIED DEMENTIA WITHOUT BEHAVIORAL DISTURBANCE SNOMED Code(s): 64352414 (4) Emphysema lung Narrative/Plan: currently stable we'll order DuoNeb when necessary Patient seems to be stable at this time the compensatory shortness of breath no wheezing on exam Current Visit: Yes Status: Acute Code(s): J43.9 - EMPHYSEMA, UNSPECIFIED SNOMED Code(s): 10942842 (5) Hyperlipidemia Narrative/Plan: diet controlled Current Visit: Yes Status: Acute Code(s): E78.5 - HYPERLIPIDEMIA, UNSPECIFIED SNOMED Code(s): 84257536 Plan: Patient is doing well clinically. I did discuss with the patient and regarding discharge planning and the recommendation from physical therapy for the patient to rehab. [facility] willing to go to rehab and they have picked [facility]. product line manager will start making arrangements.
[2017-06-03] MEDS: SENNOSIDES-DOCUSATE SODIUM 1 EACH TAB PO SCH (21:08)
[2017-06-03] MEDS: ATORVASTATIN 20 MG TAB PO SCH (21:08)
[2017-06-04] MEDS: HYDROcodone/APAP 5-325MG 1 EACH TAB PO PRN ×3 (02:23→18:17)
[2017-06-04] MEDS ORDERED: PANTOPRAZOLE 40 MG TABLET PO SCH (07:30)
[2017-06-04 07:50] LABS: Basophils # (A) 0.1 k/uL (0-0.2); Basophils % (A) 1 %; CH 30.4; CHCM 31.9; Eosinophils # (A) 0.6 k/uL (0-0.7); Eosinophils % (A) 5 %; HCT 31.9 % (34.0-46.0); HDW 2.12; HGB 10.2 gm/dL (11.4-16.0); Luc # (Auto) 0.35; Luc % (Auto) 3; Lymphocytes # (A) 2.2 k/uL (1.0-4.8); Lymphocytes % (A) 18 %; MCH 30.7 pg (25.0-35.0); MCV 95.7 fL (80.0-100.0); Mean Platelet Volume 6.4; Monocytes # (A) 0.9 k/uL (0-1.0); Monocytes % (A) 7 %; Neutrophils # (A) 7.9 k/uL (1.3-7.7); Neutrophils % (A) 66 %; RBC 3.33 m/uL (3.80-5.40); RDW 12.9 % (11.5-15.5)
[2017-06-04] MEDS: ENOXAPARIN 40 MG/0.4 ML SYRINGE SQ SCH (08:39)
[2017-06-04] MEDS: CALCIUM CARBONATE 500 MG CHEWABLE PO SCH (08:39)
[2017-06-04] MEDS: DONEPEZIL 5 MG TAB PO SCH (08:40)
[2017-06-04] MEDS: ASPIRIN 81 MG PO SCH (08:41)
[2017-06-04] MEDS ORDERED: prednisoLONE ACETATE 1% OPHTH DROPS 5 ML BTL LEFT EYE SCH (09:00)
--- NOTE | 2017-06-04 09:04 | P.PN ---
Subjective Progress Note Date: 06/04/17 This is an 82-year-old female who is status post closed reduction intramedullary hip screw placement due to right hip fracture. This is postoperative day #2. Patient states her pain is under control and she has no new complaints today. Objective - Vital Signs Vital signs: Vital Signs Temp 97.7 F 06/04/17 01:50 Pulse 79 06/04/17 01:50 Resp 16 06/04/17 01:50 BP 126/60 06/04/17 01:50 Pulse Ox 92 L 06/04/17 01:50 Intake & Output 06/03/17 06/04/17 06/04/17 18:59 06:59 18:59 Intake Total 620 200 180 Output Total 300 700 Balance 320 -500 180 Weight 61.689 kg Intake: IV 200 Sodium Chloride 0.9% 1, 200 000 ml @ 75 mls/hr IV . [id number] [facility] Rx#:[id number] Oral 420 200 180 Output: Urine 300 700 Uretheral (Boss) 300 Other: Voiding Method Indwelling Catheter Bedside Commode Bedside Commode Diaper # Voids 1 1 1 # Bowel Movements 1 1 - Exam On exam patient is sitting up in a chair in no acute distress. Patient is alert and oriented 3. Patient's incision is clean, dry and intact. Thigh is soft. Calf is soft and nontender. Neurovascular status to the right lower extremity is intact. - Labs CBC & Chem 7: 06/04/17 07:11 06/02/17 06:40 Labs: Abnormal Lab Results - Last 24 Hours (Table) 06/04/17 Range/Units 07:11 WBC 12.0 H (3.8-10.6) k/uL RBC 3.33 L (3.80-5.40) m/uL Hgb 10.2 L (11.4-16.0) gm/dL Hct 31.9 L (34.0-46.0) % Neutrophils # 7.9 H (1.3-7.7) k/uL Assessment and Plan (1) Intertrochanteric fracture of right hip Current Visit: Yes Status: Acute Code(s): S72.141A - DISPLACED INTERTROCHANTERIC FRACTURE OF RIGHT FEMUR, INIT SNOMED Code(s): 004583647 Plan: Continue routine postop care. Continue antocoagulation. Toe-touch weightbearing to the right lower extremity Daily dressing changes, keep incision clean and dry Possible discharge to rehab today or tomorrow.
--- NOTE | 2017-06-04 10:36 | P.PN ---
Subjective Progress Note Date: 06/04/17 Principal diagnosis: Intertrochanteric fracture 82 year old female that was admitted after a fall found to have ventricular trochanteric fracture. No muscle consciousness or chest pains or palpitations. Patient had surgical repair performed yesterday. Today patient with no complaints of pain she did have a bowel movement today, appetite is good no nausea no vomiting. No fever no chills. Objective - Vital Signs Vital signs: Vital Signs Temp 97.6 F 06/04/17 08:00 Pulse 64 06/04/17 08:00 Resp 15 06/04/17 08:00 BP 103/52 06/04/17 08:00 Pulse Ox 93 L 06/04/17 08:00 Intake & Output 06/03/17 06/04/17 06/04/17 18:59 06:59 18:59 Intake Total 620 200 180 Output Total 300 700 Balance 320 -500 180 Weight 61.689 kg Intake: IV 200 Sodium Chloride 0.9% 1, 200 000 ml @ 75 mls/hr IV . [id number] [facility] Rx#:[id number] Oral 420 200 180 Output: Urine 300 700 Uretheral (Boss) 300 Other: Voiding Method Indwelling Catheter Bedside Commode Bedside Commode Diaper # Voids 1 1 1 # Bowel Movements 1 1 - Exam gen:alert and oriented lungs:clear to auscultation heart:s1s2 abdomen:soft and depressible,non tender ext:no edema - Labs CBC & Chem 7: 06/04/17 07:11 06/02/17 06:40 Labs: Abnormal Lab Results - Last 24 Hours (Table) 06/04/17 Range/Units 07:11 WBC 12.0 H (3.8-10.6) k/uL RBC 3.33 L (3.80-5.40) m/uL Hgb 10.2 L (11.4-16.0) gm/dL Hct 31.9 L (34.0-46.0) % Neutrophils # 7.9 H (1.3-7.7) k/uL Assessment and Plan (1) Intertrochanteric fracture of right hip Narrative/Plan: Status post surgery 06/02 performed by orthopedic surgery Clinically doing well pain controlled Current Visit: Yes Status: Acute Code(s): S72.141A - DISPLACED INTERTROCHANTERIC FRACTURE OF RIGHT FEMUR, INIT SNOMED Code(s): 137857847 (2) Hypertension Narrative/Plan: currently controlled continue Toprol-XL Current Visit: Yes Status: Acute Code(s): I10 - ESSENTIAL (PRIMARY) HYPERTENSION SNOMED Code(s): 14588811 (3) Dementia Narrative/Plan: on Aricept and Namenda Current Visit: Yes Status: Acute Code(s): F03.90 - UNSPECIFIED DEMENTIA WITHOUT BEHAVIORAL DISTURBANCE SNOMED Code(s): 25341577 (4) Emphysema lung Narrative/Plan: currently stable we'll order DuoNeb when necessary Patient seems to be stable at this time the compensatory shortness of breath no wheezing on exam Current Visit: Yes Status: Acute Code(s): J43.9 - EMPHYSEMA, UNSPECIFIED SNOMED Code(s): 48533844 (5) Hyperlipidemia Narrative/Plan: diet controlled Current Visit: Yes Status: Acute Code(s): E78.5 - HYPERLIPIDEMIA, UNSPECIFIED SNOMED Code(s): 63493879 Plan: we are awaiting up from insurance for rehab
--- NOTE | 2017-06-04 13:16 | P.DS ---
Providers Date of admission: 06/01/17 19:57 Expected date of discharge: 06/04/17 Attending physician: Kar Mcdonnell Consults: 06/02/17 09:35 Consult Physician Urgent Consulting Provider: Shaylee Pena Consult Reason/Comments: Medical Clearance Do you want consulting provider notified?: Yes Primary care physician: Yamilet Herr - Discharge Diagnosis(es) (1) Intertrochanteric fracture of right hip Current Visit: Yes Status: Acute Hospital Course: This is a 82-year-old female who sustained an injury to the right hip. Patient was diagnosed emergency room with an intertrochanteric fracture of the right hip on 06/01/2017. The patient was evaluated as an inpatient. After discussion and consideration patient elects to proceed with closed reduction and intramedullary hip screw placement of the right hip. The patient is seen preoperatively by Dr. Mcdonnell and cleared for surgery. Patient is admitted to [facility] on 06/01/2017 for closed reduction intramedullary hip screw placement of the right hip. The procedures performed without complication or sequelae. The patient is doing well postoperatively. Labs and vital signs are stable on day of discharge. On day of discharge patient's hip incision is healing well. There is minimal erythema. There is no drainage noted at this time. There is minimal soft tissue swelling to the hip and thigh. Patient has full foot and ankle motion without difficulty or pain. Neurovascular status to the right lower extremity is intact. Patient is discharged to rehab in good condition.Please see med rec for accurate list of home medications. Patient Condition at Discharge: Good Plan - Discharge Summary New Discharge Prescriptions: New HYDROcodone/APAP 5-325MG [[place] 5-325] 1 - 2 tab PO Q4-6H PRN #90 tab PRN Reason: Pain Sennosides-Docusate Sodium [Senokot-S] 1 tab PO BID #60 tablet Aspirin 325 mg PO DAILY #30 tab No Action prednisoLONE ACETATE 1% OPHTH [Pred Forte 1%] 1 drops LEFT EYE MOFR Simvastatin [Zocor] 40 mg PO HS [place]-3 Fatty Acids/Fish Oil [Fish Oil 1,000 mg Softgel] 1 cap PO BID Metoprolol Succinate [Toprol XL] 50 mg PO DAILY Calcium Carbonate [Calcium] 600 mg PO BID Aspirin EC [Ecotrin Low Dose] 81 mg PO DAILY Rivastigmine Tartrate [Exelon] 4.5 mg PO DAILY Memantine HCl [Namenda] 10 mg PO BID Losartan/Hydrochlorothiazide [Losartan-Hctz 100-25 mg Tab] 1 tab PO DAILY Discharge Medication List Aspirin EC [Ecotrin Low Dose] 81 mg PO DAILY 06/01/17 [History] Calcium Carbonate [Calcium] 600 mg PO BID 06/01/17 [History] Losartan/Hydrochlorothiazide [Losartan-Hctz 100-25 mg Tab] 1 tab PO DAILY [History] Memantine HCl [Namenda] 10 mg PO BID 06/01/17 [History] Metoprolol Succinate [Toprol XL] 50 mg PO DAILY 06/01/17 [History] [place]-3 Fatty Acids/Fish Oil [Fish Oil 1,000 mg Softgel] 1 cap PO BID 06/01/17 [ History] Rivastigmine Tartrate [Exelon] 4.5 mg PO DAILY 06/01/17 [History] Simvastatin [Zocor] 40 mg PO HS 06/01/17 [History] prednisoLONE ACETATE 1% OPHTH [Pred Forte 1%] 1 drops LEFT EYE MOFR 06/01/17 [ History] Aspirin 325 mg PO DAILY #30 tab 06/04/17 [Rx] HYDROcodone/APAP 5-325MG [[place] 5-325] 1 - 2 tab PO Q4-6H PRN #90 tab 06/04/17 [ Rx] Sennosides-Docusate Sodium [Senokot-S] 1 tab PO BID #60 tablet 06/04/17 [Rx] Follow up Appointment(s)/Referral(s): Kar Mcdonnell DO [Doctor of Osteopathic Medicine] - 2 Weeks Yamilet Herr MD [Primary Care Provider] - 1-2 days [facility], [NON-STAFF] - Activity/Diet/Wound Care/Special Instructions: Toe-touch weightbearing to the right lower extremity with walker. Please take medications as prescribed. Follow-up with [facility] in 2 weeks with any questions or concerns Discharge Disposition: TRANSFER TO SNF/ECF
[2017-06-04] MEDS ORDERED: MORPHINE SULFATE 10 MG/ML SYRINGE IV PRN (13:46)
[2017-06-04 14:13] VITALS: BP 97/59; PULSE 68; RESP 16; TEMP 98
[2017-06-04] MEDS: METOPROLOL SUCCINATE (ER) 50 MG TAB.ER.24H PO SCH (14:32)
[2017-06-04] MEDS: MEMANTINE 10 MG TAB PO SCH (14:32)
[2017-06-04] MEDS: LOSARTAN-HCTZ 50-12.5 MG 1 EACH TAB PO SCH (14:32)
[2017-06-04] MEDS ORDERED: BISACODYL 10 MG SUPP RECTAL STA (17:47)
[2017-06-04] MEDS: SODIUM CHLORIDE 0.9% 1,000 ML IV SCH (18:11)
== END 2017-06-04 18:39 | DRG 482 ==
LOC: EC 16:24 → 3SUR 19:57
PROVIDERS: ADMIT Orthopaedic Surgery Orthopaedic Surgery of the Spine; ATTEND Orthopaedic Surgery Orthopaedic Surgery of the Spine
PROC: 0QS634Z Reposition Right Upper Femur with Internal Fixation Device, Percutaneous Approach (ICD-10-PCS; principal; 2017-06-02 14:10)
DX: S72.141A Displaced intertrochanteric fracture of right femur, initial encounter for closed fracture (principal); G30.9 Alzheimer's disease, unspecified; F02.80 Dementia in other diseases classified elsewhere, unspecified severity, without behavioral disturbance, psychotic disturbance, mood disturbance, and anxiety; I10 Essential (primary) hypertension; J43.9 Emphysema, unspecified; E78.5 Hyperlipidemia, unspecified; I71.4 Abdominal aortic aneurysm, without rupture; Z79.899 Other long term (current) drug therapy; Z79.82 Long term (current) use of aspirin; Z87.891 Personal history of nicotine dependence; Z90.49 Acquired absence of other specified parts of digestive tract; W01.0XXA Fall on same level from slipping, tripping and stumbling without subsequent striking against object, initial encounter
CPT/HCPCS: 36415; 71275; 73502; 75635; 80048; 80053; 83735; 85025; 85610; 85730; 86850; 86900; 86901; 88305; 93005; 99285